=== PATIENT | male | born 1950 | race Caucasian/White ===

== ENCOUNTER 2020-11-01 20:20 | Inpatient (IN) | payer MEDICARE ==
[2020-11-01 23:38] LABS: Basophils % 1.5 % (0-1.3); Hematocrit 43.2 % (39.6-49.0); Lymphocytes % 24.9 % (15.3-44.8); MPV 7.3 fL (7.6-11.3); RBC Red Blood Cell Count 4.78 M/uL (4.33-5.43)
[2020-11-02 00:20] LABS: ALT/SGPT 18 U/L (12-78); AST/SGOT 21 U/L (15-37); Albumin 3.2 g/dL (3.4-5.0); Alkaline Phosphatase 92 U/L (45-117); BUN Blood Urea Nitrogen 26 mg/dL (7-18); Bicarbonate 27 mmol/L (21-32); Bilirubin Direct < 0.1 mg/dL (0-0.2); Bilirubin Total 0.2 mg/dL (0.2-1.0); Glucose Level 191 mg/dL (74-106); Magnesium 2.2 mg/dL (1.8-2.4); NT PRO-BNP 1310 pg/mL (<125); Potassium 4.8 mmol/L (3.5-5.1); Sodium Level 140 mmol/L (136-145); Troponin (Emerg Dept Use Only) < 0.02 ng/mL (0.0-0.045)
--- NOTE | 2020-11-02 01:05 | EDPHYS ---
Physician Documentation [facility] Name: Javier Low Age: 70 yrs Sex: Male : 1950 Arrival Date: 11/01/2020 Time: 20:21 Bed 6 Private MD: ED Physician Mauricio Cardenas HPI: 11/02 00:58 This 70 yrs old Male presents to ER via Ambulatory with complaints of mh7 Breathing Difficulty - more when laying down. 00:58 The patient has shortness of breath at rest, with light activity, Laying Flat. Onset: mh7 The symptoms/episode began/occurred 4 day(s) ago. Duration: The symptoms are intermittent, with no pattern. The patient's shortness of breath is aggravated by exertion, light activity, supine position. The patient's shortness of breath is alleviated by sitting up. Associated signs and symptoms: Pertinent negatives: chest pain, non-productive cough, productive cough, diaphoresis, dizziness, fever, hemoptysis, loss of consciousness, nausea, numbness in extremities, visual changes, vomiting. Severity of symptoms: At their worst the symptoms were moderate yesterday, in the emergency department the symptoms are unchanged. Historical: - Allergies: 11/01 21:03 Tikosyn; lp1 - PMHx: 21:03 AAA; Atrial Fib; Diabetes - NIDDM; neuropathy; CHF; Sleep Apnea; lp1 - PSHx: 21:03 CABG; Aortic aneurysm repair; lp1 - Immunization history:: Adult Immunizations up to date. - Social history:: Smoking status: Patient reports the use of cigarette tobacco products, smokes one pack cigarettes per day. ROS: 11/02 00:58 Constitutional: Negative for fever, chills, and weight loss, Eyes: Negative for injury, mh7 pain, redness, and discharge, ENT: Negative for injury, pain, and discharge, Neck: Negative for injury, pain, and swelling, Cardiovascular: Negative for chest pain, palpitations, and edema, Abdomen/GI: Negative for abdominal pain, nausea, vomiting, diarrhea, and constipation, Back: Negative for injury and pain, : Negative for injury, bleeding, discharge, and swelling, MS/Extremity: Negative for injury and deformity, Skin: Negative for injury, rash, and discoloration, Neuro: Negative for headache, weakness, numbness, tingling, and seizure, Psych: Negative for depression, anxiety, suicide ideation, homicidal ideation, and hallucinations, Allergy/Immunology: Negative for hives, rash, and allergies, Endocrine: Negative for neck swelling, polydipsia, polyuria, polyphagia, and marked weight changes, Hematologic/Lymphatic: Negative for swollen nodes, abnormal bleeding, and unusual bruising. Exam: 00:58 Head/Face: Normocephalic, atraumatic. Eyes: Pupils equal round and reactive to light, mh7 extra-ocular motions intact. Lids and lashes normal. Conjunctiva and sclera are non-icteric and not injected. Cornea within normal limits. Periorbital areas with no swelling, redness, or edema. Neck: Trachea midline, no thyromegaly or masses palpated, and no cervical lymphadenopathy. Supple, full range of motion without nuchal rigidity, or vertebral point tenderness. No Meningismus. Chest/axilla: Normal chest wall appearance and motion. Nontender with no deformity. No lesions are appreciated. 00:58 Abdomen/GI: Soft, non-tender, with normal bowel sounds. No distension or tympany. No guarding or rebound. No evidence of tenderness throughout. Back: No spinal tenderness. No costovertebral tenderness. Full range of motion. Skin: Warm, dry with normal turgor. Normal color with no rashes, no lesions, and no evidence of cellulitis. MS/ Extremity: Pulses equal, no cyanosis. Neurovascular intact. Full, normal range of motion. Neuro: Awake and alert, GCS 15, oriented to person, place, time, and situation. Cranial nerves II-XII grossly intact. Motor strength 5/5 in all extremities. Sensory grossly intact. Cerebellar exam normal. Normal gait. Psych: Awake, alert, with orientation to person, place and time. Behavior, mood, and affect are within normal limits. 00:58 Constitutional: The patient appears in no acute distress, alert, awake, uncomfortable. 00:58 Cardiovascular: Rate: tachycardic, Rhythm: regular, Pulses: no pulse deficits are appreciated, Heart sounds: normal, normal S1and S2, Edema: pedal edema, that is mild, JVD: is not appreciated. 01:04 Respiratory: the patient does not display signs of respiratory distress, Respirations: mh7 prolonged exhalation, that is mild, Breath sounds: rales, that are mild, are scattered, rhonchi, that are mild, are scattered, wheezing: that is mild, is scattered. Vital Signs: 11/01 21:00 BP 120 / 87; Pulse 117; Resp 20; Temp 98(O); Pulse Ox 95% on R/A; Weight 113.4 kg (R); lp1 Height 5 ft. 9 in. (175.26 cm); Pain 0/10; 11/02 02:30 BP 98 / 63; Pulse 95; Resp 25; Temp 98; Pulse Ox 96% ; rv 20:00 BP 136 / 67; Pulse 90; Resp 20; Temp 98.2; Pulse Ox 99% on 2 lpm NC; ea 11/01 21:00 Body Mass Index 36.92 (113.40 kg, 175.26 cm) lp1 MDM: 01:02 Differential diagnosis: Anemia Anxiety Reaction asthma, Bronchitis CHF exacerbation, mh7 Chronic Obstructive Pulmonary Disease Myocardial Infarction pneumonia, pulmonary edema, reactive airway disease. Data reviewed: vital signs, nurses notes, lab test result(s), cardiac enzymes, CBC, electrolytes, urinalysis, EKG, radiologic studies, plain films. Data interpreted: Pulse oximetry: on room air is 94 %. Interpretation: acceptable. Counseling: I had a detailed discussion with the patient and/or guardian regarding: the historical points, exam findings, and any diagnostic results supporting the discharge/admit diagnosis, the presence of at least one elevated blood pressure reading (>120/80) during this emergency department visit, lab results, radiology results, the need for further work-up and treatment in the hospital. Response to treatment: the patient's symptoms have mildly improved after treatment. 01:[address] [facility] 11/01 23:11 Order name: Basic Metabolic Panel; Complete Time: 00:28 [facility] 11/01 23:11 Order name: CBC with Diff; Complete Time: 00:28 [facility] 11/01 23:11 Order name: LFT's; Complete Time: 00:28 [facility] 11/01 23:11 Order name: Magnesium; Complete Time: 00:28 [facility] 11/01 23:11 Order name: NT PRO-BNP; Complete Time: 00:28 [facility] 11/01 23:11 Order name: PT-INR [facility] 11/01 23:11 Order name: Troponin (emerg Dept Use Only); Complete Time: 00:28 mh7 11/02 00:43 Order name: Blood Culture Adult (2) la1 11/02 01:15 Order name: COVID-19/FLU A+B; Complete Time: 19:34 EDMS 11/02 05:07 Order name: CBC with Automated Diff; Complete Time: 19:34 EDMS 11/02 05:19 Order name: Basic Metabolic Panel; Complete Time: 19:34 EDMS 11/02 05:19 Order name: T4 Free; Complete Time: 19:34 EDMS 11/01 21:04 Order name: XRAY Chest Pa And Lat (2 Views); Complete Time: 19:34 lp1 11/01 23:11 Order name: EKG; Complete Time: 23:12 7 11/01 23:11 Order name: Cardiac monitoring; Complete Time: 23:26 mh7 11/02 05:19 Order name: Magnesium; Complete Time: 19:34 EDMS 11/02 05:19 Order name: Thyroid Stimulating Hormone; Complete Time: 19:34 EDMS 11/02 05:41 Order name: Procalcitonin; Complete Time: 19:34 EDMS 09 06:25 Order name: Hemoglobin A1c; Complete Time: 19:34 EDMS 09 07:47 Order name: Glucose, Ancillary Testing; Complete Time: 19:34 EDMS 11/02 11:50 Order name: Glucose, Ancillary Testing; Complete Time: 19:34 EDMS 11/02 15:33 Order name: Protime (+INR); Complete Time: 19:34 EDMS 11/02 16:52 Order name: Glucose, Ancillary Testing; Complete Time: 19:34 EDMS 08 23:11 Order name: EKG - Nurse/Tech; Complete Time: 23:26 7 11/01 23:11 Order name: IV Saline Lock; Complete Time: 23:46 7 11/01 23:11 Order name: Labs collected and sent; Complete Time: 23:26 7 11/01 23:11 Order name: O2 Per Protocol; Complete Time: 23:26 7 11/01 23:11 Order name: O2 Sat Monitoring; Complete Time: 23:33 mh7 Administered Medications: 00:53 Drug: SOLU-Medrol 125 mg Route: IVP; Site: left wrist; rv 02:32 Follow up: Response: No adverse reaction rv 00:53 Drug: Lasix 20 mg Route: IVP; Site: left wrist; rv 02:32 Follow up: Response: No adverse reaction rv 01:00 Drug: Xopenex (3) 1.25 mg Route: Inhalation; rv 02:32 Follow up: Response: No adverse reaction rv 02:31 CANCELLED (Duplicate Order): Xopenex (3) 1.25 mg Inhalation once rv 04:05 Drug: oxyCODONE-acetaminophen (5 mg-325 mg) 1 tabs {Note: rass 0.} Route: PO; rv Disposition: 11/02/20 01:04 Hospitalization ordered by Nic Salazar for Observation. Preliminary diagnosis are CHF Exacerbation, COPD Exacerbation. - Bed requested for Telemetry/MedSurg (observation). - Status is Observation. ea - Condition is Stable. - Problem is an acute exacerbation. - Symptoms have improved. Signatures: Dispatcher [employer] [facility] Lyubov Guillen RN RN 1 Aroldo Jay, CLINICAL ASST-C CLINICAL ASST-Cla1 Latasha Mueller RN RN Ammy Haney RN RN ea Vicente, Ronaldo RN Mauricio Gonzáles MD MD mh7 Corrections: (The following items were deleted from the chart) 00:19 08 23:15 Influenza Screen (A \T\ B)+BA.LAB.BRZ ordered. EDHI EDHI 11/02 00:21 0108 23:15 CORONAVIRUS+MR.LAB.BRZ ordered. [facility] 11/02 01:39 01:04 Hospitalization Ordered by Nic Salazar DO for Observation. Preliminary cg diagnosis is CHF Exacerbation; COPD Exacerbation. Bed requested for Telemetry/MedSurg (observation). Status is Observation. Condition is Stable. Problem is an acute exacerbation. Symptoms have improved. mh7 02:31 02:31 Xopenex (3) 1.25 mg Inhalation once ordered. rv rv 19:31 01:39 11/02/2020 01:04 Hospitalization Ordered by Nic Salazar DO for Observation. cg Preliminary diagnosis is CHF Exacerbation; COPD Exacerbation. Bed requested for [facility] ER HOLD. Status is Observation. Condition is Stable. Problem is an acute exacerbation. Symptoms have improved. cg 20:00 19:31 11/02/2020 01:04 Hospitalization Ordered by Nic Salazar DO for Observation. ea Preliminary diagnosis is CHF Exacerbation; COPD Exacerbation. Bed requested for Telemetry/MedSurg (observation). Status is Observation. Condition is Stable. Problem is an acute exacerbation. Symptoms have improved. cg
--- NOTE | 2020-11-02 01:05 | ER ---
Nurse's Notes [facility] Name: Javier Low Age: 70 yrs Sex: Male : 1950 Arrival Date: 11/01/2020 Time: 20:21 Bed 6 Private MD: Diagnosis: CHF Exacerbation;COPD Exacerbation Presentation: 11/01 21:00 Chief complaint: Patient states: Shortness of breath x3-4 days; Reports hx of pneumonia lp1 and CHF; Denies fever, chest pain. Coronavirus screen: Client denies travel out of the [place] in the last 14 days. shortness of breath. Ebola Screen: No symptoms or risks identified at this time. Initial Sepsis Screen: Does the patient meet any 2 criteria? HR > 90 bpm. Does the patient have a suspected source of infection? No. Patient's initial sepsis screen is negative. Risk Assessment: Do you want to hurt yourself or someone else? Patient reports no desire to harm self or others. Onset of symptoms was November 01, 2020. 21:00 Method Of Arrival: Ambulatory lp1 21:00 Acuity: FÉLIX 3 lp1 Triage Assessment: 21:03 General: Appears in no apparent distress. Behavior is calm, cooperative. Respiratory: lp1 Reports shortness of breath Onset: The symptoms/episode began/occurred gradually, the patient has mild shortness of breath. Historical: - Allergies: 21:03 Tikosyn; lp1 - PMHx: 21:03 AAA; Atrial Fib; Diabetes - NIDDM; neuropathy; CHF; Sleep Apnea; lp1 - PSHx: 21:03 CABG; Aortic aneurysm repair; lp1 - Immunization history:: Adult Immunizations up to date. - Social history:: Smoking status: Patient reports the use of cigarette tobacco products, smokes one pack cigarettes per day. Screenin:00 Abuse screen: Denies threats or abuse. Denies injuries from another. Nutritional rv screening: No deficits noted. Tuberculosis screening: No symptoms or risk factors identified. Fall Risk None identified. Assessment: 21:00 General: Appears uncomfortable, Behavior is calm, cooperative. rv 21:00 Pain: Complains of pain in back. Neuro: Level of Consciousness is awake, alert, obeys rv commands, Oriented to person, place, time, situation. Cardiovascular: Patient's skin is warm and dry. Rhythm is atrial fibrillation with rapid ventricular response. Respiratory: Airway is patent Respiratory effort is labored, Breath sounds with wheezes bilaterally. Derm: Skin is intact. 11/02 19:59 Reassessment: Patient and/or family updated on plan of care and expected duration. Pain ea level reassessed. Patient is alert, oriented x 3, equal unlabored respirations, skin warm/dry/pink. Report given receiving nurse on second floor. Pt left ED via wheelchair per tech. Pt tolerating well. Vital Signs: 11/01 21:00 BP 120 / 87; Pulse 117; Resp 20; Temp 98(O); Pulse Ox 95% on R/A; Weight 113.4 kg (R); lp1 Height 5 ft. 9 in. (175.26 cm); Pain 0/10; 11/02 02:30 BP 98 / 63; Pulse 95; Resp 25; Temp 98; Pulse Ox 96% ; rv 20:00 BP 136 / 67; Pulse 90; Resp 20; Temp 98.2; Pulse Ox 99% on 2 lpm NC; ea 11/01 21:00 Body Mass Index 36.92 (113.40 kg, 175.26 cm) lp1 ED Course: 11/01 20:21 Patient arrived in ED. am2 21:00 Patient has correct armband on for positive identification. Placed in gown. Bed in low rv position. Call light in reach. Side rails up X 1. quality assurance monitor final on. Pulse ox on. NIBP on. 21:02 Triage completed. lp1 21:02 Arm band placed on. lp1 21:21 XRAY Chest Pa And Lat (2 Views) In Process Unspecified. EDMS 22:51 Mauricio Cardenas MD is Attending Physician. mh7 23:06 Kevin Colbert, MIKHAIL is Primary Nurse. rv 23:48 Inserted saline lock: 20 gauge in left wrist, using aseptic technique. Blood collected. ds4 11/02 01:03 Nic Salazar DO is Hospitalizing Provider. 7 02:29 No provider procedures requiring assistance completed. IV is patent, with fluids rv infusing freely, Patient admitted, IV remains in place. 07:10 Primary Nurse role handed off by Kevin Colbert, MIKHAIL bp 07:10 Mike Frazier, MIKHAIL is Primary Nurse. bp Administered Medications: 00:53 Drug: SOLU-Medrol 125 mg Route: IVP; Site: left wrist; rv 02:32 Follow up: Response: No adverse reaction rv 00:53 Drug: Lasix 20 mg Route: IVP; Site: left wrist; rv 02:32 Follow up: Response: No adverse reaction rv 01:00 Drug: Xopenex (3) 1.25 mg Route: Inhalation; rv 02:32 Follow up: Response: No adverse reaction rv 02:31 CANCELLED (Duplicate Order): Xopenex (3) 1.25 mg Inhalation once rv 04:05 Drug: oxyCODONE-acetaminophen (5 mg-325 mg) 1 tabs {Note: rass 0.} Route: PO; rv Outcome: 01:04 Decision to Hospitalize by Provider. [facility] 02:30 Admitted to ER Hold. Please see [facility] for further documentation. rv 02:30 Condition: good 02:30 Instructed on the need for admit. 20:00 Patient left the ED. ea Signatures: Dispatcher [employer] EDMS Lyubov Guillen RN RN lp1 Porfirio Knapp ds4 Augustina Rubio amAmmy Leone RN RN ea Peltier, Brian, RN RN bp Vicente, Ronaldo, RN RN rv Holmes, Maurice, MD MD 7
[2020-11-02] MEDS ORDERED: FUROSEMIDE 20 MG/ 2ML VIAL ONE (01:06)
[2020-11-02] MEDS ORDERED: METHYLPREDNISOLONE 125 MG INJ ONE ×2 (01:06→09:54)
[2020-11-02 01:15] LABS: SARS-COV-2 RT PCR NEGATIVE (NEGATIVE)
--- NOTE | 2020-11-02 01:15 | P.HP ---
Certification for Inpatient Patient admitted to: Inpatient With expected LOS: <2 Midnights Patient will require the following post-hospital care: None Practitioner: I am a practitioner with admitting privileges, knowledge of patient current condition, hospital course, and medical plan of care. Services: Services provided to patient in accordance with Admission requirements found in Title 42 Section 412.3 of the Code of Federal Regulations <Aroldo Jay - Last Filed: 11/02/20 01:09> Patient admitted to: Observation <Nic Salazar - Last Filed: 11/02/20 10:03> Patient History Date of Service: 11/02/20 Primary Care Provider: Dr. Lang Reason for admission: COPD exacerbation History of Present Illness: 70 year old male with history of chronic diastolic congestive heart failure, COPD with tobacco abuse, diabetes mellitus type 2, atrial fibrillation with valve replacement on chronic anticoagulation therapy presents emergency department for shortness of breath that was increasing over the course of the last 2-3 days, orthopnea, dyspnea on exertion. Patient recently moved back to [place] from [place] and when he left he was unable to take his home oxygen with him. Patient also admits to not taking his diuretic as it Makes him pee too much patient was evaluated in the emergency room, found to be short of breath, mildly hypoxic. Patient on exam has expiratory wheezing and bibasilar crackles. Mild pedal edema bilaterally. ED provider wishes to admit patient for further evaluation and management. Patient was counseled on need for compliance with medical therapy including diuretics. - Past Medical/Surgical History Diabetic: Yes -: Diabetes mellitus type 2 -: Hypertension -: Chronic diastolic congestive heart failure -: AFib with valve replacement on anticoagulation therapy with Coumadin -: Sleep apnea -: Home oxygen and CPAP dependent -: AAA repair -: Valve replacement-unknown valve Psychosocial/ Personal History: Patient is retired, lives with his - Family History Family History: Reviewed- Non-Contributory - Social History Smoking Status: Current every day smoker Counseled patient to stop smoking for: less than 10 minutes Smoking therapy provided: Yes Patient receptive to therapy: Yes Alcohol use: No CD- Drugs: Yes Caffeine use: Yes Place of Residence: Home <Aroldo Jay - Last Filed: 11/02/20 01:09> Date of Service: 11/02/20 Home medications list reviewed: Yes <Nic Salazar - Last Filed: 11/02/20 10:03> Allergies dofetilide [From Tikosyn] Adverse Reaction (Verified 11/02/20 02:07) Nausea/Vomiting Home Medications: Glimepiride 2 mg PO BID 05/03/16 Metoprolol Tartrate [Lopressor*] 100 mg PO BID #60 tab 05/06/16 Atorvastatin Calcium 40 mg PO DAILY 11/02/20 Bumetanide 2 mg PO BID 11/02/20 Buproprion S.r. [Wellbutrin SR] 150 mg PO DAILY 11/02/20 Diltiazem HCl [Cartia Xt] 120 mg PO DAILY 11/02/20 Insulin Degludec [Tresiba Flextouch U-100] 55 unit SQ DAILY 11/02/20 Montelukast [Singulair] 10 mg PO BEDTIME 11/02/20 Oxycodone HCl/Acetaminophen [Oxycodon-Acetaminophen 7.5-325] 1 each PO Q6H PRN 11/02/20 Potassium Chloride [K-Dur] 20 meq PO BID 11/02/20 Pregabalin 100 mg PO TID 11/02/20 Warfarin Sodium [Coumadin] 7.5 mg PO DAILY 11/02/20 Review of Systems 10-point ROS is otherwise unremarkable Respiratory: Cough, Dry, Shortness of Breath, SOB with Excertion, Wheezing Cardiovascular: Orthopnea, Edema <Aroldo Jay - Last Filed: 11/02/20 01:09> Physical Examination - Physical Exam General: Alert, In no apparent distress, Oriented x3 HEENT: Atraumatic, Normocephalic, PERRLA Neck: Supple Respiratory: Crackles/rales, Expiratory wheezes Cardiovascular: Edema, Irregular heart rate/rhythm (AFib) Capillary refill: >2 Seconds Gastrointestinal: Normal bowel sounds, Soft and benign, No tenderness, No masses, No rebound Musculoskeletal: No contractures, No erythema, No tenderness Integumentary: No significant lesion, No tenderness/swelling, No erythema Neurological: Normal speech, Normal strength at 5/5 x4 extr, Normal tone, Sensation intact - Studies Laboratory Data (last 24 hrs) 11/01/20 23:48: Sodium 140, Potassium 4.8, BUN 26 H, Creatinine 1.30, Glucose 191 H, Magnesium 2.2, Total Bilirubin 0.2, AST 21, ALT 18, Alkaline Phosphatase 92 11/01/20 23:23: WBC 8.2, Hgb 14.4, Hct 43.2, Plt Count 256 <Aroldo Jay - Last Filed: 11/02/20 01:09> - Studies Laboratory Data (last 24 hrs) 11/01/20 23:48: Sodium 140, Potassium 4.8, BUN 26 H, Creatinine 1.30, Glucose 191 H, Magnesium 2.2, Total Bilirubin 0.2, AST 21, ALT 18, Alkaline Phosphatase 92 11/01/20 23:23: PT Cancelled, INR Cancelled 11/01/20 23:23: WBC 8.2, Hgb 14.4, Hct 43.2, Plt Count 256 <Nic Salazar - Last Filed: 11/02/20 10:03> Assessment and Plan - Plan Assessment Acute on chronic diastolic congestive heart failure COPD exacerbation Atrial fibrillation on chronic anticoagulation therapy Diabetes mellitus type 2 Hypertension Tobacco abuse Obesity Plan Acute on chronic diastolic congestive heart failure: Patient admits to not taking his diuretic, will re-initiate diuretic therapy, counseled on necessity for compliance. 1500 cc per day fluid restrictions. Cardiology consult in place. Patient will likely need outpatient echo therapy for further evaluation. Continue Coumadin for DVT prophylaxis COPD exacerbation: Patient uses home oxygen but does not have a currently as he recently moved from [place], will need to obtain home oxygen likely. Pulmonology consult in place, continue with steroids and scheduled nebs at this time. Atrial fibrillation on chronic anticoagulation therapy: Continue Coumadin, follow INR. Diabetes mellitus type 2: A.c. HS Accu-Cheks scale insulin therapy. A1c with morning labs. Hypertension: Home medications continued. Adjust as necessary. Tobacco abuse: Counseled on need for tobacco cessation, will provide nicotine patch. Obesity: Counseled on dietary and lifestyle changes. Discharge Plan: Home Plan to discharge in: 24 Hours - Advance Directives Does patient have a Living Will: No Does patient have a Durable POA for Healthcare: No - Code Status/Comfort Care Code Status Assessed: Yes (Full code) Critical Care: No Time Spent Managing Pts Care (In Minutes): 55 <Aroldo Jay - Last Filed: 11/02/20 01:09> - Plan Case discussed in detail with nurse practitioner. Agree with plan of care. Continue monitor closely. Continue diuresis. Will discuss with cardiology. Patient will likely require oxygen at discharge. Will help arrange. Likely discharge in the next 24 hr. <Nic Salazar - Last Filed: 11/02/20 10:03>
[2020-11-02] MEDS ORDERED: LEVALBUTEROL 1.25 MG/3 ML NEB ONE (01:32)
[2020-11-02] MEDS ORDERED: ONDANSETRON 4 MG/2 ML VIAL IV PRN (01:46)
[2020-11-02] MEDS ORDERED: ACETAMINOPHEN 500 MG TAB PO PRN (01:46)
[2020-11-02] MEDS: METHYLPREDNISOLONE 40 MG INJ IV SCH ×2 (01:46→09:00)
[2020-11-02] MEDS: ALBUTEROL 2.5 MG/3 ML NEB SOL NEB SCH ×2 (02:00→08:20)
[2020-11-02] MEDS: IPRATROPIUM BROM 0.5MG/2.5ML NEB SCH ×2 (02:00→08:20)
[2020-11-02] MEDS: NICOTINE 21 MG/PAT TD SCH ×2 (03:00→09:00)
[2020-11-02] MEDS ORDERED: Oxycodone HCl/Acetaminophen 1 TAB TAB ONE (03:59)
[2020-11-02 04:52] LABS: Absolute Lymphocytes (CBC) 0.7 K/uL (0.7-4.9); Basophils % 0.8 % (0-1.3); Hematocrit 43.5 % (39.6-49.0); Lymphocytes % 7.9 % (15.3-44.8); MPV 6.8 fL (7.6-11.3); RBC Red Blood Cell Count 4.83 M/uL (4.33-5.43)
[2020-11-02 05:19] LABS: Magnesium 2.2 mg/dL (1.8-2.4); Potassium 4.7 mmol/L (3.5-5.1); Thyroid Stimulating Hormone 2.22 uIU/mL (0.360-3.740)
[2020-11-02] MEDS: INSULIN -REGULAR HUMAN 50 UNIT/0.5 ML ML SQ SCH ×4 (07:30→20:45)
[2020-11-02] MEDS ORDERED: INSULIN -REGULAR HUMAN 50 UNIT/0.5 ML ML ONE ×2 (07:57→17:14)
[2020-11-02] MEDS ORDERED: ALBUTEROL 2.5 MG/3 ML NEB SOL ONE (08:29)
[2020-11-02] MEDS ORDERED: IPRATROPIUM BROM 0.5MG/2.5ML ONE (08:29)
[2020-11-02] MEDS: DULERA 100/5 (MOMETASONE/FORMOTEROL) INHALER IH SCH ×2 (09:00→20:43)
[2020-11-02] MEDS: METOPROLOL TAR 50 MG TAB PO SCH ×2 (09:00→20:43)
[2020-11-02] MEDS: BUPROPION HCL XL 150 MG TAB PO SCH (09:00)
[2020-11-02] MEDS ORDERED: FUROSEMIDE 20 MG/ 2ML VIAL IV SCH (09:00)
[2020-11-02] MEDS: FUROSEMIDE 40 MG/4 ML VIAL IV SCH ×2 (09:00→17:00)
[2020-11-02] MEDS: DILTIAZEM HCL 120 MG SR CAP PO SCH (09:00)
--- NOTE | 2020-11-02 09:07 | RAD REPORT ---
EXAM DESCRIPTION: RAD - Chest Pa And Lat (2 Views) - 11/01/2020 9:24 pm CLINICAL HISTORY: SOB COMPARISON: Portable April 2016 TECHNIQUE: Frontal and lateral views of the chest were obtained. FINDINGS: The lungs are normal volume. No dense focal elevation of mass lesions seen. CABG surgical changes are noted since the prior study with multiple fractured sternotomy wires. Interstitial opacif ication is increased slightly from comparison. There is some minimal alveolar opacities present. Tra robert is midline. Heart size is normal and central vasculature is within normal limits. No pleural effusion or pneumo thorax seen. No acute bony finding noted. No aortic abnormality. IMPRESSION: Slight interstitial opacification increased over comparison with suspected minimal alveo lar opacities. Minimal failure or volume overload would be suspected. Viral infiltrate including COVID-19 pneumonia can have a similar presentation and can be correlated with laboratory and exam findings.
[2020-11-02] MEDS ORDERED: FUROSEMIDE 40 MG/4 ML VIAL ONE ×2 (09:54→16:20)
[2020-11-02] MEDS ORDERED: METOPROLOL TAR 50 MG TAB ONE (09:54)
[2020-11-02] MEDS ORDERED: IPRATROPIUM BROM 0.5MG/2.5ML NEB PRN (10:07)
[2020-11-02] MEDS ORDERED: ALBUTEROL 2.5 MG/3 ML NEB SOL NEB PRN (10:08)
[2020-11-02] MEDS ORDERED: LEVALBUTEROL 0.63 MG/3 ML NEB NEB PRN (10:09)
--- NOTE | 2020-11-02 10:14 | P.PN ---
Subjective Date of Service: 11/02/20 Primary Care Provider: Dr. Lang Chief Complaint: COPD exacerbation Subjective: Improving (Breathing improved. Still on 2 L per nasal cannula.) Physical Examination - Vital Signs Temperature: 98.2 F Blood Pressure: 115/71 Pulse: 120 Respirations: 20 Pulse Ox (%): 96 - Physical Exam General: Alert, In no apparent distress, Oriented x3, Cooperative HEENT: Atraumatic Neck: Supple Respiratory: Crackles/rales, Expiratory wheezes Cardiovascular: Irregular heart rate/rhythm (AFib rate around 110) Gastrointestinal: Normal bowel sounds, No tenderness, No masses, No rebound, No guarding Musculoskeletal: No erythema, No tenderness, No warmth Integumentary: No tenderness/swelling (Edema to the lower extremities noted) Neurological: Normal speech, Normal strength at 5/5 x4 extr, Normal tone - Studies Laboratory Data (last 24 hrs) 11/01/20 23:48: Sodium 140, Potassium 4.8, BUN 26 H, Creatinine 1.30, Glucose 191 H, Magnesium 2.2, Total Bilirubin 0.2, AST 21, ALT 18, Alkaline Phosphatase 92 11/01/20 23:23: PT Cancelled, INR Cancelled 11/01/20 23:23: WBC 8.2, Hgb 14.4, Hct 43.2, Plt Count 256 Medications List Reviewed: Yes Assessment & Plan Discharge Plan: Home Plan to discharge in: 24 Hours Physician Review Additional Text: Assessment Dyspnea secondary to Acute on chronic diastolic congestive heart failure complicated with COPD exacerbation Atrial fibrillation on chronic anticoagulation therapy Diabetes mellitus type 2 [id number] Hypertension Tobacco abuse GERD Depression with anxiety Diabetic neuropathy Obesity Plan Dyspnea secondary to Acute on chronic diastolic congestive heart failure complicated with COPD exacerbation: Continue with IV diuresis. Will change IV steroid to oral. Provide COPD medication. Will discuss further with pulmonology. Cardiology consulted. Will discuss with cardiology for plan of care. Patient will likely require home oxygen at discharge. Will need to arrange for home oxygen. Review and restart home medication. Recheck chest x- ray tomorrow. Anticipate improvement over the next 24 hr. Atrial fibrillation on chronic anticoagulation therapy: Restart home medication including diltiazem and metoprolol. Patient on Coumadin. Continue to monitor INR. Continue medication. Diabetes mellitus type 2 [id number]: A1c 6.0. Continue sliding scale. Accu-Cheks in place. Hypertension: Continue medication Tobacco abuse: Tobacco cessation addressed in detail. Will provide nicotine patch if needed. GERD: Will provide medication Depression with anxiety: Restart home medication. Diabetic neuropathy: Restart medication Obesity: Will address lifestyle modification education. Time Spent Managing Pts Care (In Minutes): 55
[2020-11-02] MEDS: PREGABALIN 50 MG CAP PO SCH ×2 (14:00→20:42)
[2020-11-02 15:17] LABS: Protime INR 2.41
[2020-11-02] MEDS ORDERED: HYDROCODONE/APAP 7.5/325 MG TAB ONE (15:51)
[2020-11-02] MEDS ORDERED: PREGABALIN 50 MG CAP ONE ×2 (16:19→16:35)
[2020-11-02] MEDS ORDERED: WARFARIN SODIUM 7.5 MG TAB PO SCH (17:00)
[2020-11-02] MEDS ORDERED: WARFARIN SODIUM 5 MG TAB ONE (17:13)
[2020-11-02] MEDS: FAMOTIDINE 20 MG TAB PO SCH (20:41)
[2020-11-02] MEDS: HYDROCODONE/APAP 7.5/325 MG TAB PO SCH (20:43)
[2020-11-02] MEDS: predniSONE 20 MG TAB PO SCH (20:44)
[2020-11-02] MEDS ORDERED: MONTELUKAST 10 MG TAB PO SCH (21:00)
[2020-11-02] MEDS ORDERED: ATORVASTATIN 40 MG TAB PO SCH (21:00)
[2020-11-02 23:05] VITALS: BMI 39.1
[2020-11-03 06:02] LABS: Absolute Lymphocytes (CBC) 0.7 K/uL (0.7-4.9); Basophils % 0.1 % (0-1.3); Hematocrit 41.7 % (39.6-49.0); Lymphocytes % 5.8 % (15.3-44.8); RBC Red Blood Cell Count 4.66 M/uL (4.33-5.43)
[2020-11-03 06:04] LABS: Protime INR 2.85
[2020-11-03 06:16] LABS: Magnesium 2.3 mg/dL (1.8-2.4); Potassium 4.2 mmol/L (3.5-5.1)
[2020-11-03 07:27] LABS: Blood Morphology Comment NOT SEEN (NOT SEEN); Hypersegmented Neutrophils PRESENT; Platelet Estimate ADEQ
--- NOTE | 2020-11-03 07:28 | EKG ---
Test Date: 2020-11-01 Test Time: 23:22:34 Inclusion Special Educator: JENNIFER MEASUREMENT RESULTS: Intervals: Rate: 117 MO: QRSD: 92 QT: 344 QTc: 479 Marine: P: MO: QRS: -42 T: 67 INTERPRETIVE STATEMENTS: Accelerated Junctional rhythm Left axis deviation Abnormal ECG Compared to ECG 05/04/2016 06:48:31 Accelerated junctional rhythm now present Left-axis deviation now present Atrial fibrillation no longer present Ventricular premature complex(es) no longer present Left anterior fascicular block no longer present Left ventricular hypertrophy no longer present ST (T wave) deviation no longer present Electronically Signed On 11-03-20 07:24:20 EXPANDER by Rell Lange
[2020-11-03] MEDS: BUPROPION HCL XL 150 MG TAB PO SCH (08:31)
[2020-11-03] MEDS: HYDROCODONE/APAP 7.5/325 MG TAB PO SCH ×2 (08:31→13:49)
[2020-11-03] MEDS: FAMOTIDINE 20 MG TAB PO SCH (08:31)
[2020-11-03] MEDS: METOPROLOL TAR 50 MG TAB PO SCH (08:31)
[2020-11-03] MEDS: INSULIN -REGULAR HUMAN 50 UNIT/0.5 ML ML SQ SCH ×2 (08:32→11:58)
[2020-11-03] MEDS: predniSONE 20 MG TAB PO SCH (08:32)
[2020-11-03] MEDS: DILTIAZEM HCL 120 MG SR CAP PO SCH (08:32)
[2020-11-03] MEDS: DULERA 100/5 (MOMETASONE/FORMOTEROL) INHALER IH SCH (08:32)
[2020-11-03] MEDS: FUROSEMIDE 40 MG/4 ML VIAL IV SCH (08:33)
[2020-11-03] MEDS: PREGABALIN 50 MG CAP PO SCH ×2 (08:53→13:49)
[2020-11-03] MEDS: NICOTINE 21 MG/PAT TD SCH (08:54)
[2020-11-03] MEDS ORDERED: FOLIC ACID 1 MG TABLET PO SCH (09:00)
[2020-11-03] MEDS ORDERED: THIAMINE HCL 100 MG TABLET PO SCH (09:00)
--- NOTE | 2020-11-03 09:03 | CON ---
Date of Consultation: 11/03/[address] Salazar on 11/02/2020. Reason For Consultation: Congestive heart failure. History Of Present Illness: Mr. Low is a 70-year-old male. I have met him back in 2016 when he naylor d a normal heart catheterization then. He also had an attempted cardioversion on chronic atrial fibr illation at that time. We have not seen him since. Apparently, he has moved to [place], but since the last time we saw him, he has had an abdominal aortic aneurysm repair surgically. He also had a coronary artery bypass surgery in 2018 as well as a bioprosthetic aortic valve. He was told he has c ongestive heart failure, unknown type. He has a history of COPD, chronic atrial fibrillation, diabet es, neuropathy, sleep apnea and obesity. Came in with congestive heart failure symptoms. Chest x-ra y showed mild CHF. Denied chest pain, nausea, vomiting, diaphoresis. Has had PND, orthopnea, pedal edema. No palpitations and no syncope. Past Medical History: As stated above. Allergies: TIKOSYN THAT WAS ATTEMPTED FOR HIS ATRIAL FIBRILLATION. Medications At Home: Include Lipitor, Bumex, glimepiride, Pepcid, Lasix, metoprolol, Coumadin, insul in, and prednisone. Review of Systems: Negative. Social History: Negative. Family History: Noncontributory. Physical Examination: Vital Signs: He weighed 265 pounds. He was in atrial fibrillation at a rate of 90, afebrile. HEENT: Negative. Neck: Supple without any bruit, lymphadenopathy, JVD, or thyromegaly. Chest: Reveals some rales, both bases. Cardiac: Revealed an irregularly irregular rhythm and rate without any murmurs, gallops, or rubs. Abdomen: Obese. Extremities: Revealed 2+ edema. Skin: Dry and intact. Pulses were present distally and bilaterally. Neurologic: He was nonfocal. Diagnostic Data: His EKG showed atrial fibrillation. Chest x-ray showed mild CHF. Creatinine is 1. 36. INR 2.41. Glucose of 374. BNP is 1310. Impression And Plan: 1.Acute on chronic diastolic congestive heart failure. Echocardiogram is pending. I fully agree wi th his present regimen. 2.Renal insufficiency. We need to watch that with his diuresis. 3.Chronic atrial fibrillation on Coumadin. Adequate INR. 4.Chronic atrial fibrillation on Coumadin. 5.Diabetes. 6.Coronary artery disease, status post CABG. 7.Status post aortic valve replacement, sounds normal on examination. 8.Neuropathy. 9.Sleep apnea. 10.Obesity. Echocardiogram is pending for the morning. I agree with his present regimen. Due to Lasix, he is di uresing well. I will continue to follow him. TESSIE/MILO Voice ID: [id number] Report ID: [id number]
[2020-11-03 10:16] VITALS: O2SAT 95
--- NOTE | 2020-11-03 11:42 | RAD REPORT ---
EXAM DESCRIPTION: RAD - Chest Pa And Lat (2 Views) - 11/03/2020 7:57 am CLINICAL HISTORY: Follow up CHF Chest pain. COMPARISON: Chest Pa And Lat (2 Views) dated 11/01/2020; Chest Single View dated 05/04/2016; Chest Sing le View dated 05/03/2016; Chest Single View dated 01/27/2016; Angio Aorta For Dissection dated 6 FINDINGS: Interstitial opacities are present bilaterally, unchanged. The heart is mildly enlarged in size. Several fractured sternotomy wires noted. IMPRESSION: Mild CHF pattern appears stable since comparative study.
--- NOTE | 2020-11-03 12:09 | P.DS ---
Admission Date: 11/02/20 Discharge Date: 11/03/20 Primary Care Provider: Dr. Lang Disposition: ROUTINE DISCHARGE Discharge Condition: GOOD Reason for Admission: CHF/COPD exacerbation Consultations: Cardiology-Dr. Lange Procedures: Followup CXR: FINDINGS: Interstitial opacities are present bilaterally, unchanged. The heart is mildly enlarged in size. Several fractured sternotomy wires noted. IMPRESSION: Mild CHF pattern appears stable since comparative study. Medical Problem List: Dyspnea secondary to Acute on chronic diastolic congestive heart failure complicated with COPD exacerbation Atrial fibrillation on chronic anticoagulation therapy Diabetes mellitus type 2 [id number]-ktddozgjw Hypertension Tobacco abuse GERD Depression with anxiety Diabetic neuropathy Obesity Brief History of Present Illness: 70 year old male with history of chronic diastolic congestive heart failure, COPD with tobacco abuse, diabetes mellitus type 2, atrial fibrillation with valve replacement on chronic anticoagulation therapy presents emergency department for shortness of breath that was increasing over the course of the last 2-3 days, orthopnea, dyspnea on exertion. Patient recently moved back to [place] from [place] and when he left he was unable to take his home oxygen with him. Patient also admits to not taking his diuretic as it Makes him pee too much patient was evaluated in the emergency room, found to be short of breath, mildly hypoxic. Patient on exam has expiratory wheezing and bibasilar crackles. Mild pedal edema bilaterally. Patient admitted for further evaluation and treatment. Hospital Course: Dyspnea secondary to acute on chronic diastolic CHF complicated with COPD exacerbation. Patient received IV diuresis with treatment of COPD. Patient seen and evaluated by Cardiology. Patient has improved. Compliance with medication was addressed in detail. Home oxygen has been arranged. At discharge patient remains stable on 2 L per nasal cannula. Diuresis has signifi cantly improved. At discharge patient will continue with home oxygen to maintain sats above 93%. For his COPD patient will continue with prednisone 20 mg 1 pill twice daily for 7 days then 1 pill once daily for 7 days. The patient will also continue with Dulera 2 puffs twice daily and Xopenex 2 puffs 3 times a day as needed for shortness of breath. For is underlying CHF patient will continue with Bumex 2 mg 1 pill twice daily and potassium supplementation. At discharge patient will continue with a 1500 cc per day fluid restriction and low-salt diet. Recommend to monitor his weight daily. If his weight increases by more than 5 lb further adjustment may be required. Recommend follow up with cardiology within 1 week to further address this condition and monitoring. I will also recommend follow up with pulmonology to establish care and further address his condition. Patient with atrial fibrillation on chronic anti coagulation therapy. This has remained stable. At discharge patient will continue with diltiazem 120 mg daily and metoprolol 100 mg 1 pill twice daily. Patient remains on Coumadin 7.5 mg daily. Recommend to recheck INR in 1 week. Recommend follow up with cardiology as directed. Patient with diabetes mellitus type 2. Patient is insulin dependent. A1c 6.0. At discharge patient will continue with his current medications of glimepiride 2 mg 1 pill twice daily and Tresiba 55 units subcu daily. Recommend to maintain blood sugar less than 140 fasting and less than 200 after meals. Further adjustment can be done by his PCP. Patient with tobacco abuse. Tobacco cessation addressed in detail. Nicotine patch will be provided. Patient with hyperlipidemia. At discharge patient will continue with Lipitor 40 mg daily. Patient with depression with anxiety. At discharge patient will continue with his medications of Bupropion XL 150 mg daily. Patient with diabetic neuropathy. At discharge patient continue with Lyrica 100 mg 1 pill 3 times a day. Patient with history of CAD, CABG, and history of heart valve replacement on Coumadin. As mentioned above patient will continue with Coumadin 7.5 mg daily. Recommend INR to be Re checked in 1 week. Further adjustment can be done by his PCP or cardiology. Vital Signs/Physical Exam: Temp Pulse Resp BP Pulse Ox 97.3 F 115 H 18 110/65 98 11/03/20 08:00 11/03/20 08:00 11/03/20 09:31 11/03/20 08:00 11/03/20 09:31 General: Alert, In no apparent distress, Oriented x3, Cooperative HEENT: Atraumatic Neck: Supple Respiratory: Clear to auscultation bilaterally, Other (On 2 L per nasal cannula) Cardiovascular: Irregular heart rate/rhythm (AFib rate controlled) Gastrointestinal: Normal bowel sounds, No masses, No rebound, No guarding Neurological: Normal speech, Normal strength at 5/5 x4 extr, Normal tone, Normal affect Laboratory Data at Discharge: WBC 12.8 K/uL (4.3-10.9) H D 11/03/20 05:32 Hgb 13.9 g/dL (13.6-17.9) 11/03/20 05:32 Hct 41.7 % (39.6-49.0) 11/03/20 05:32 Plt Count 258 K/uL (152-406) 11/03/20 05:32 PT 33.0 SECONDS (9.5-12.5) H 11/03/20 05:32 INR 2.85 11/03/20 05:32 Sodium 142 mmol/L (136-145) 11/03/20 05:32 Potassium 4.2 mmol/L (3.5-5.1) 11/03/20 05:32 BUN 38 mg/dL (7-18) H 11/03/20 05:32 Creatinine 1.20 mg/dL (0.55-1.3) 11/03/20 05:32 Glucose 171 mg/dL (74-106) H 11/03/20 05:32 Magnesium 2.3 mg/dL (1.8-2.4) 11/03/20 05:32 Total Bilirubin 0.2 mg/dL (0.2-1.0) 11/01/20 23:48 AST 21 U/L (15-37) 11/01/20 23:48 ALT 18 U/L (12-78) 11/01/20 23:48 Alkaline Phosphatase 92 U/L (45-117) 11/01/20 23:48 Home Medications: Glimepiride 2 mg PO BID 05/03/16 Metoprolol Tartrate [Lopressor*] 100 mg PO BID #60 tab 05/06/16 Atorvastatin Calcium 40 mg PO DAILY 11/02/20 Bumetanide 2 mg PO BID 11/02/20 Buproprion S.r. [Wellbutrin Sr*] 150 mg PO DAILY 11/02/20 Diltiazem HCl [Cartia Xt] 120 mg PO DAILY 11/02/20 Insulin Degludec [Tresiba Flextouch U-100] 55 unit SQ DAILY 11/02/20 Montelukast [Singulair*] 10 mg PO BEDTIME 11/02/20 Oxycodone HCl/Acetaminophen [Oxycodon-Acetaminophen 7.5-325] 1 each PO Q6H PRN 11/02/20 Potassium Chloride [K-Dur] 20 meq PO BID 11/02/20 Pregabalin 100 mg PO TID 11/02/20 Warfarin Sodium [Coumadin*] 7.5 mg PO DAILY 11/02/20 Folic Acid 1 mg PO DAILY #90 tablet 11/03/20 Levalbuterol Tartrate [Xopenex Hfa] 2 puff IH TID PRN #1 hfa.aer.ad 11/03/20 Mometasone/Formoterol [Dulera 100 Mcg/5 Mcg Inhaler] 2 puff IH BID #1 inhaler 11/03/20 Nicotine [Nicoderm*] 21 mg TD DAILY #30 patch.td24 11/03/20 Thiamine HCl [Vitamin B-1*] 100 mg PO DAILY #30 tablet 11/03/20 predniSONE [Prednisone*] 20 mg PO SEECOM #21 tab 11/03/20 New Medications: Mometasone/Formoterol [Dulera 100 Mcg/5 Mcg Inhaler] 2 puff IH BID #1 inhaler Folic Acid 1 mg PO DAILY #90 tablet Nicotine [Nicoderm*] 21 mg TD DAILY #30 patch.td24 predniSONE [Prednisone*] 20 mg PO SEECOM #21 tab Thiamine HCl [Vitamin B-1*] 100 mg PO DAILY #30 tablet Levalbuterol Tartrate [Xopenex Hfa] 2 puff IH TID PRN #1 hfa.aer.ad PRN Reason: Shortness Of Breath Patient Discharge Instructions: Recommend follow up with PCP in 1 week. Dyspnea secondary to acute on chronic diastolic CHF complicated with COPD exacerbation. Patient received IV diuresis with treatment of COPD. Patient seen and evaluated by Cardiology. Patient has improved. Compliance with medication was addressed in detail. Home oxygen has been arranged. At discharge patient remains stable on 2 L per nasal cannula. Diuresis has significantly improved. At discharge patient will continue with home oxygen to maintain sats above 93%. For his COPD patient will continue with prednisone 20 mg 1 pill twice daily for 7 days then 1 pill once daily for 7 days. The patient will also continue with Dulera 2 puffs twice daily and Xopenex 2 puffs 3 times a day as needed for shortness of breath. For is underlying CHF patient will continue with Bumex 2 mg 1 pill twice daily and potassium supplementation. At discharge patient will continue with a 1500 cc per day fluid restriction and low-salt diet. Recommend to monitor his weight daily. If his weight increases by more than 5 lb further adjustment may be required. Recommend follow up with cardiology within 1 week to further address this condition and monitoring. I will also recommend follow up with pulmonology to establish care and further address his condition. Patient with atrial fibrillation on chronic anti coagulation therapy. This has remained stable. At discharge patient will continue with diltiazem 120 mg daily and metoprolol 100 mg 1 pill twice daily. Patient remains on Coumadin 7.5 mg daily. Recommend to recheck INR in 1 week. Recommend follow up with cardiology as directed. Patient with diabetes mellitus type 2. Patient is insulin dependent. A1c 6.0. At discharge patient will continue with his current medications of glimepiride 2 mg 1 pill twice daily and Tresiba 55 units subcu daily. Recommend to maintain blood sugar less than 140 fasting and less than 200 after meals. Further adjustment can be done by his PCP. Patient with tobacco abuse. Tobacco cessation addressed in detail. Nicotine patch will be provided. Patient with hyperlipidemia. At discharge patient will continue with Lipitor 40 mg daily. Patient with depression with anxiety. At discharge patient will continue with his medications of Bupropion XL 150 mg daily. Patient with diabetic neuropathy. At discharge patient continue with Lyrica 100 mg 1 pill 3 times a day. Patient with history of CAD, CABG, and history of heart valve replacement on Coumadin. As mentioned above patient will continue with Coumadin 7.5 mg daily. Recommend INR to be Re checked in 1 week. Further adjustment can be done by his PCP or cardiology. Diet: ADA Activity: Fall precautions Followup: NONE,NONE [Primary Care Provider] - Time spent managing pt's care (in minutes): 55
[2020-11-03 14:56] VITALS: BP 119/77; TEMP 98
== END 2020-11-03 15:42 | disposition home or self-care (01) | DRG 190 ==
LOC: ER 20:20 → ERHOLD 11-02 00:56 → OBSVTOIN 11-02 19:43 → 2ND 11-02 19:48
PROVIDERS: ADMIT Family Medicine; ATTEND Family Medicine
DX: J44.1 Chronic obstructive pulmonary disease with (acute) exacerbation (principal); I50.33 Acute on chronic diastolic (congestive) heart failure; I48.20 Chronic atrial fibrillation, unspecified; I11.0 Hypertensive heart disease with heart failure; F17.210 Nicotine dependence, cigarettes, uncomplicated; K21.9 Gastro-esophageal reflux disease without esophagitis; F41.8 Other specified anxiety disorders; E11.40 Type 2 diabetes mellitus with diabetic neuropathy, unspecified; N28.9 Disorder of kidney and ureter, unspecified; I25.10 Atherosclerotic heart disease of native coronary artery without angina pectoris; G47.30 Sleep apnea, unspecified; E78.5 Hyperlipidemia, unspecified; E66.9 Obesity, unspecified; Z68.39 Body mass index [BMI] 39.0-39.9, adult; Z88.8 Allergy status to other drugs, medicaments and biological substances; Z95.1 Presence of aortocoronary bypass graft; Z99.81 Dependence on supplemental oxygen; Z79.4 Long term (current) use of insulin; Z71.6 Tobacco abuse counseling; Z95.2 Presence of prosthetic heart valve; Z79.899 Other long term (current) drug therapy; Z79.52 Long term (current) use of systemic steroids; Z79.01 Long term (current) use of anticoagulants; Z20.822 Contact with and (suspected) exposure to COVID-19
CPT/HCPCS: 0240U; 36415; 71046; 80048; 80076; 82947; 83036; 83735; 83880; 84145; 84439; 84443; 84484; 85025; 85610; 87040; 93005; 96374; 96375; 99285; G0378; J1940; J2930; J7512; J7606